=== PATIENT | male | born 1945 | race Two or more races ===

== ENCOUNTER → 2019-10-31 | Day surgery (SDC) | payer MEDICARE, OTHER ==
[2019-10-25 17:33] LABS: BASOPHILS # (AUTO) 0.1 (0.0-0.1); BASOPHILS % 0.8 % (0.0-1.0); EOSINOPHILS # (AUTO) 0.6 (0.0-0.4); HEMATOCRIT 40.8 % (38.2-49.6); HEMOGLOBIN 13.8 g/dL (14.0-18.0); LYMPHOCYTES # (AUTO) 4.3 (1.0-3.2); LYMPHOCYTES % 36.8 % (18.0-39.1); MEAN CORPUSCULAR HEMOGLOBIN 30.4 pg (28-32); MEAN CORPUSCULAR HGB CONC 33.8 g/dL (31-35); MEAN CORPUSCULAR VOLUME 89.9 fL (81-99); MONOCYTES # (AUTO) 0.9 (0.2-0.8); MONOCYTES % 7.9 % (4.4-11.3); NEUTROPHILS # (AUTO) 5.7 (2.1-6.9); NEUTROPHILS % 49.2 % (38.7-80.0); PLATELET COUNT 304 x10e3/uL (140-360); RED BLOOD COUNT 4.54 x10e6/uL (4.3-5.7)
[2019-10-25 17:52] LABS: ANION GAP 14.4 mmol/L (8-16); CALCIUM 10.5 mg/dL (8.4-10.2); CREATININE, SERUM 1.2 mg/dL (0.72-1.25); POTASSIUM 4.4 mmol/L (3.5-5.1)
[~2019-10-31] MED LIST: ASPIRIN81 MG PO; CEFAZOLIN SOD 1 GM/NS 50ML 100 ML IV ONE; DEXAMETHASONE SOD PHOS INJ 4 MG/ML VIAL ONE; ETOMIDATE 2 MG/ML 10 ML INJ IV ONE; FENTANYL CITRATE/PF 100MCG/2 ML INJ ONE; GLIPIZIDE-METF1 EAC2 PO; HYDROCODONE/APAP 5MG-325MG TAB ONE; HYDROCODONE/APAP 7.5MG-325MG 1 EA TAB ONE; INSULIN REGULAR, HUMAN 100 UNIT/1 ML 3ML VIAL ONE; JANUVIA100 MG PO; KETOROLAC TROMETHAMINE 30 MG/ML VIAL ONE; LEVOTHYROXINE50 MCG PO; LOSARTAN POTAS100 MG PO; MIDAZOLAM HCL 2 MG/2 ML VIAL ONE; NOVOLOG MI100 UNIT/1 SC; ONDANSETRON HCL INJ 2MG/ML 2ML 2 MG/ML VIAL ONE; PROPOFOL IV EMULSION 10 MG/ML 20 ML VIAL ONE; SEVOFLURANE INHAL SOLN 250 ML PEN BTL ONE; SIMVASTATIN40 MG PO; VITAMIN D3125 MCG PO
[2019-10-31 07:52] VITALS: BP 157/85
--- NOTE | 2019-10-31 11:52 | Operative Report ---
DATE OF PROCEDURE: 10/31/2019 SURGEON: ALE CEE MD LOCATION: Place of surgery is [facility]. HISTORY: Mr. Alfonso is a having a chronic trigger finger of the right middle finger. He has failed conservative treatment consisting of multiple injections, anti-inflammatories, home therapy program. The patient elected to forgo any further conservative treatment and proceed on with a right middle finger A1 lisa release. DESCRIPTION OF PROCEDURE: The patient was seen and identified in preoperative holding area. The right middle finger was marked by myself. The patient agreed. Consent was confirmed. The patient's risks and benefits discussed once again, consisting, but not limited to the following: Infection, blood loss, nerve, vessel or tendon injury, DVT, ongoing pain, stiffness, recurrence of the triggering. The patient was brought back to operative suite. Time-out was taken for Mr. Sammy Alfonso for release of A1 lisa. All were in agreement including nursing staff, Anesthesia, and myself. The upper extremity was then sterilely prepped and draped in usual sterile fashion after a nonsterile tourniquet had been placed in the right upper arm. The patient oblique incision was made over the A1 lisa, right middle finger. I marked off the area of tenderness prior to the patient's intubation, this was in the preop holding area. A small oblique incision was made over the A1 lisa. Blunt dissection was carried down. Upon which time, I noted that there was actually a tendon sheath cyst noted over the A1 lisa. The cyst was carefully excised and removed. A second #15 blade was used to release the A1 lisa. The patient had some marked adhesions of the underlying flexor tendons along with flexor tenosynovitis. I went ahead and mobilized each of the individual flexor tendons, completing a tenolysis. Copious irrigation was carried out entire wound. The incision was then closed using 4-0 nylon suture in inverted fashion. Xeroform compressive dressing was applied and a splint. The patient was then successfully extubated and transferred to PACU in stable condition. PREOPERATIVE DIAGNOSIS: Necrotic right middle finger trigger finger, i.e. stenosing tenosynovitis. POSTOPERATIVE DIAGNOSES: 1. Stenosing tenosynovitis of the right middle finger, trigger finger. 2. 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 3. Flexor tenosynovitis of the flexor tendon of the right middle finger with adhesions. PROCEDURES: 1. Release of A1 lisa of the right middle finger. 2. Excision of a flexor tendon sheath cyst of right middle finger. 3. Flexor tenolysis of the flexor tendons, FDS and FDP of the right middle finger x2 tendons. ANESTHESIA: General. ESTIMATED BLOOD LOSS: Less than 3 mL. SPECIMENS: Synovium. COMPLICATIONS: None. CONDITION: Stable to PACU. The patient is seen in PACU. Dressings were clean and dry. Capillary refills are brisk. Pain is well controlled. The intraoperative findings were reviewed and discussed with the patient as well as his daughter. The patient has a [facility]up [facility] in 12 to 14 days. He is discharged home with Keflex as well as [place]. Discharge and wound care instructions were also discussed with nursing staff. MD ISHAN SKELTON/LISA /[id number]
--- NOTE | 2019-10-31 12:22 | Operative Report ---
DATE OF PROCEDURE: 10/31/2019 SURGEON: ALE CEE MD LOCATION: Place of surgery is [facility]. HISTORY: Mr. Sammy Alfonso is a patient following in [facility] for several years. He has continuous ongoing carpal tunnel symptoms along with chronic trigger finger of the right middle finger. The patient elected to proceed along with a right-sided carpal tunnel release along with release of A1 lisa, right middle finger. The patient was seen and identified in the preoperative holding area. The right wrist and hand was marked for salvage as well as A1 lisa of the right middle finger. Risks and benefits of surgery been outlined to him consisting but not limited to the following: Infection, blood loss, nerve, vessel or tendon injury, DVT, ongoing pain. The patient was brought back to the operative suite. Time-out was taken for Mr. Sammy Alfonso for right-sided carpal tunnel release and release of A1 lisa right middle finger. All were in agreement including nursing staff, Anesthesia and myself. The patient was given a successful general intubation anesthetic. A nonsterile tourniquet was placed high in the right upper arm. The right upper extremity was then sterilely prepped and draped in usual standard fashion. The limb was exsanguinated. Tourniquet was inflated to approximately 225 mmHg. Beginning with an initial skin 15 Bard-Kd blade incision made over the carpal tunnel of the right wrist. Subcutaneous bleeding was controlled with a needle Bovie tip. The palmar fascia was identified and incised in line with the skin incision with a second 15 Bard-Kd blade. Blunt dissection was then carried down to the transverse carpal ligament. A second 15 Bard-Kd blade was used to make an incision and window into the carpal tunnel and the nerve was well identified. A soft tissue nerve retractor was placed between the median nerve and the transverse ligament and a full decompression carried out proximally and distally avoiding injury to the distal motor branch. A complete decompression was carried out. The medial nerve was identified. It was noted to be slightly hyperemic and flattened. I went ahead and carefully mobilized the nerve with the nerve retractor puncture and there was some marked amount of villonodular like synovitis of the wrist. A synovectomy was carried out removing the inflamed synovium. The patient has significant adhesions and flexor tenosynovitis of the flexor tendons noted. I proceeded on with a flexor tenolysis of each of the individual flexor tendons mobilizing each tendon and removing the inflamed synovium. A flexor synovitis was carried out on each individual flexor tendons x8. Copious irrigation was carried out of the entire wound. First, second and final counts were found to be correct. The incision then closed using a 4-0 nylon suture in interrupted fashion, and a postoperative splint was applied. PREOPERATIVE DIAGNOSIS: Right carpal tunnel syndrome. POSTOPERATIVE DIAGNOSES: 1. Right carpal tunnel syndrome with median nerve decompression. 2. Right wrist villonodular synovitis. 3. Right wrist flexor tendon tenosynovitis x8 tendons. PROCEDURES: 1. Right carpal tunnel release with median nerve decompression. 2. Right wrist synovectomy. 3. Right wrist flexor tenolysis x8 tendons. 4. Placement of a short-arm splint. ANESTHESIA: General. ESTIMATED BLOOD LOSS: Less than 2 to 3 mL. SPECIMENS: No. COMPLICATIONS: None. CONDITION: Stable. MD ISHAN SKELTON/LISA /[id number]
== END | disposition home or self-care (01) ==
LOC: OR 05:10
PROVIDERS: ATTEND Orthopaedic Surgery
DX: G56.01 Carpal tunnel syndrome, right upper limb (principal); M12.231 Villonodular synovitis (pigmented), right wrist; M65.331 Trigger finger, right middle finger; M67.843 Other specified disorders of tendon, right hand; G56.02 Carpal tunnel syndrome, left upper limb; M65.332 Trigger finger, left middle finger; G47.33 Obstructive sleep apnea (adult) (pediatric); I25.810 Atherosclerosis of coronary artery bypass graft(s) without angina pectoris; I10 Essential (primary) hypertension; E11.9 Type 2 diabetes mellitus without complications; Z95.1 Presence of aortocoronary bypass graft; Z01.810 Encounter for preprocedural cardiovascular examination; Z01.812 Encounter for preprocedural laboratory examination; Z11.59 Encounter for screening for other viral diseases; Z79.4 Long term (current) use of insulin; Z79.82 Long term (current) use of aspirin; Z79.84 Long term (current) use of oral hypoglycemic drugs
CPT/HCPCS: 25115; 26055; 36415 ×2; 80048; 82948; 85025; 93005; J0690; J1100; J1885; J2250; J2405; J2704; J3010; U0002; J1817